=== PATIENT | male | born 1935 | race Asian ===

== ENCOUNTER 2020-06-12 10:51 | Inpatient (IN) | payer MEDICARE, MEDICAID ==
[~2020-06-12] VITALS: Ht 162.6 cm; Wt 61.0 kg
--- NOTE | 2020-06-12 11:00 | NUR ---
ED Nurse Note: Patient presents to ER due to frequent falls. Patient awake, alert, oriented x 4. Regular, unlabored breathing noted. Patient reports he uses walker and recently fell "a lot" Brusie/swelling over the left shoulder and skin abrasion on the right forearm noted. Patient recalled the event and answering questions appropriately. Patient reported he felt dizzy prior to fall. ERMD made aware. Reports no new medications. Patient has decreased oral intake due to loss of appetite. Reports no cough, fever, chills or SOB. Pacemaker to the left chest noted. AV paced rhythma identified. Bed in lowest position. Instructed patient to stay in bed and asking for assistance if he needs to get OOB. Call light within reach.
--- NOTE | 2020-06-12 11:40 | NUR ---
ED Nurse Note: SAMY-[phone]
--- NOTE | 2020-06-12 11:52 | NUR ---
ED Nurse Note: Transporter taken patient to CT scan.
[2020-06-12] MEDS ORDERED: AMIODARONE HCL400 M1 ORAL (11:54)
[2020-06-12] MEDS ORDERED: LOSARTAN POTASS50 MG ORAL (11:54)
[2020-06-12] MEDS ORDERED: ELIQUIS5 MG PO (11:54)
[2020-06-12] MEDS ORDERED: AMLODIPINE BESYL5 MG ORAL (11:54)
[2020-06-12] MEDS ORDERED: METOPROLOL TAR100 M1 ORAL (11:54)
[2020-06-12] MEDS ORDERED: ATORVASTATIN CA20 MG ORAL (11:55)
[2020-06-12] MEDS ORDERED: ASPIRIN81 MG ORAL (11:55)
[2020-06-12] MEDS ORDERED: PANTOPRAZOLE SO40 MG ORAL (11:55)
[2020-06-12 12:15] LABS: BASOPHILS % (AUTO) 1.2 % (0.0-2.0); EOSINOPHILS % (AUTO) 0.8 % (0.0-3.0); HEMOGLOBIN 12.4 G/DL (14.2-18.0); LYMPHOCYTES % (AUTO) 12.1 % (20.0-45.0); MEAN CORPUSCULAR VOLUME 91 FL (80-99); MONOCYTES % (AUTO) 16.1 % (1.0-10.0); NEUTROPHILS % (AUTO) 69.8 % (45.0-75.0); PLATELET COUNT 308 K/UL (150-450); RED BLOOD COUNT 3.97 M/UL (4.70-6.10); WHITE BLOOD COUNT 9.7 K/UL (4.8-10.8)
--- NOTE | 2020-06-12 12:15 | NUR ---
ED Nurse Note: Patient returned from CT scan. Placed patient on groundwater monitoring technician.
--- NOTE | 2020-06-12 12:29 | Diagnostic Imaging Report ---
Indications: Head trauma, pain Technique: Spiral acquisitions obtained through the brain. Angled axial and coronal 5 x 5 mm slices were reconstructed. Total dose length product 1018 mGycm. CTDI vol(s) 53 mGy. Dose reduction achieved using automated exposure control Comparison: None. Findings: There is age-related enlargement of the ventricles and extra axial CSF spaces. There is periventricular deep white matter low-attenuation, consistent with chronic microvascular ischemic changes. Otherwise normal mckay-white differentiation. No acute intracranial hemorrhage. No mass effect nor midline shift. The mastoids are clear. The calvarium is intact. Impression: Chronic and age-related changes Negative for acute intracranial bleed or mass effect. The CT scanner at [facility] is accredited by the [employer] and the scans are performed using protocols designed to limit radiation exposure to as low as reasonably achievable to attain images of sufficient resolution adequate for diagnostic evaluation.
[2020-06-12 12:30] LABS: CALCIUM 8.6 MG/DL (8.5-10.1); CREATININE 1.3 MG/DL (0.55-1.30); POTASSIUM 4.4 MMOL/L (3.5-5.1)
[2020-06-12 12:42] LABS: ALBUMIN 2.9 G/DL (3.4-5.0); ALBUMIN/GLOBULIN RATIO 0.9 (1.0-2.7)
[2020-06-12 13:26] VITALS: BP 147/58
--- NOTE | 2020-06-12 13:30 | NUR ---
ED Nurse Note: Patient able to wiggle left hand, cap refill < 3 sec and sensation remained intact.
--- NOTE | 2020-06-12 13:35 | NUR ---
ED Nurse Note: Report given to THANH Mast.
--- NOTE | 2020-06-12 15:00 | NUR ---
ED Nurse Note: Patient resting in bed. Sling in LUE.
--- NOTE | 2020-06-12 15:39 | NUR ---
ED Nurse Note: Report given to THANH López. RN held IV fluid. Denies any SOB or dyspnea at this time. Addendum: 06/12/20 at 2005 by MIKE Patient received approximately 700ml fluid.
[2020-06-12 16:08] VITALS: BP 150/70
--- NOTE | 2020-06-12 16:33 | NUR ---
NURSE NOTES: Patient admitted from ED, report received from Emani LAW. Transferred to bed. teletypesetter monitor placed. Belongings accounted for. Pacemaker on left upper chest palpated. Skin intact, with bruising on left shoulder noted. Sling on left arm, reminded patient to keep arm still. Breathing unlabored, with crackles noted on the right lower lobe. Patient denies coughing. A and O x 4. Oriented to room and call light. Side rails up, bed alarm on. IV line on right forearm intact, g20. HOB elevated. Patient's daughter requested covid test for patient, also reports new onset tremors, Dr Ramirez made aware. Bed locked in low position. Call light within reach. Will continue plan of care. Addendum: 06/12/20 at 2002 by Maribel Dumont RN NURSE NOTES: Dr Ramirez said he will be the one to put in admission orders. Addendum: 06/12/20 at 2006 by Maribel Dumont RN NURSE NOTES: Admitting VS: 97.9F, 65 MT, 20 RR, 154/55, 93% O2 sat.
--- NOTE | 2020-06-12 16:43 | NUR ---
ED Nurse Note: Patient transferred to tele unit. Addendum: 06/12/20 at 2006 by MIKE Patient remained awake, alert, oriented x 4. Patient has sling to left arm remained intact. RN checked with Dr. Bauman if he needs any exam for elevated LFTs and no further order received and ok to transfer patient to tele at this time. No facial grimacing or guarding noted.
[2020-06-12 17:32] LABS: APPEARANCE,URINE CLEAR; BILIRUBIN, URINE NEGATIVE (NEGATIVE); COLOR,URINE YELLOW; GLUCOSE, URINE (UA) NEGATIVE (NEGATIVE); KETONES,URINE NEGATIVE (NEGATIVE); LEUKOCYTE ESTERASE ,URINE 1+ (NEGATIVE); NITRITE,URINE NEGATIVE (NEGATIVE); PH,URINE 7 (4.5-8.0); PROTEIN,URINE NEGATIVE (NEGATIVE); UROBILINOGEN,URINE NORMAL MG/DL (0.0-1.0)
[2020-06-12] MEDS ORDERED: Milk of Magnesia 30ml Ud ORAL PRN (17:45)
--- NOTE | 2020-06-12 18:19 | Diagnostic Imaging Report ---
Indication: Cough Technique: One view of the chest Comparison: none Findings: There is some calcification in the right infrahilar region. Bilateral acuity indeterminate interstitial and airspace disease is noted, somewhat diffuse with a mid and lower lung predominance. The pleural spaces are grossly clear. The heart size is normal. There is an ununited fracture of the left clavicle, displaced by 2 bone widths. There is a left chest pacemaker Impression: Bilateral interstitial and airspace disease, acuity indeterminate. Correlate with clinical findings Left distal clavicular fracture, acuity indeterminate Evidence of old granulomatous disease
--- NOTE | 2020-06-12 18:21 | Diagnostic Imaging Report ---
Indication: Shoulder pain Technique: 3 views of the left shoulder Comparison: none Findings: There is a fracture of the distal clavicle, displaced inferiorly by 2 bone widths and overriding by about 2 cm. There is a lucency at the base of the acromion which could also represent a fracture. No humeral fracture demonstrated. No dislocations. Impression: Positive for distal clavicular fracture Questionable fracture of the base of the acromion as well.
--- NOTE | 2020-06-12 18:49 | Emergency Room Report ---
History of Present Illness General Chief Complaint: Upper Extremity Injury Source: Patient, EMS Present Illness HPI 85-year-old male presents the ED for syncopal episode. Brought in by EMS from home. Fell last night. Hit his head. Also complaining of bruising and pain to the left shoulder. Pain is an 8 out of 10, dull, nonradiating. States he has been feeling lightheaded recently. Denies chest pain or shortness of breath. Denies fevers or chills. No other aggravating relieving factors. Denies any other associated symptoms Allergies: Coded Allergies: No Known Allergies (Unverified , 06/12/20) COVID-19 Screening Contact w/high risk pt: No Experienced COVID-19 symptoms?: No COVID-19 Testing performed QUIRK SANDER: No Patient History Past Medical History: HTN Past Surgical History: pacemaker Pertinent Family History: none Social History: Denies: smoking, alcohol use, drug use Immunizations: UTD Reviewed Nursing Documentation: PMH: Agreed; PSxH: Agreed Nursing Documentation-PMH Past Medical History: No History, Except For Hx Cardiac Problems: Yes Hx Hypertension: Yes Hx Pacemaker: Yes Hx Gastrointestinal Problems: Yes Review of Systems All Other Systems: negative except mentioned in HPI Physical Exam Vital Signs Date Time Temp Pulse Resp B/P (MAP) Pulse Ox O2 Delivery O2 Flow Rate FiO2 06/12/20 10:39 98.8 60 18 180/70 (106) 96 Room Air Sp02 EP Interpretation: reviewed, normal General Appearance: no apparent distress, alert, GCS 15, non-toxic Head: normocephalic, atraumatic Eyes: bilateral eye normal inspection, bilateral eye PERRL ENT: hearing grossly normal, normal pharynx, no angioedema, normal voice Neck: full range of motion, supple/symm/no masses Respiratory: chest non-tender, lungs clear, normal breath sounds, speaking full sentences Cardiovascular #1: regular rate, rhythm, no edema Cardiovascular #2: 2+ carotid (R), 2+ carotid (L), 2+ radial (R), 2+ radial (L), 2+ dorsalis pedis (R), 2+ dorsalis pedis (L) Gastrointestinal: normal bowel sounds, non tender, soft, non-distended, no guarding, no rebound Rectal: deferred Genitourinary: normal inspection, no CVA tenderness Musculoskeletal: back normal, normal range of motion, gait/station normal, non- tender Neurologic: alert, motor strength/tone normal, oriented x3, sensory intact, responsive, speech normal Psychiatric: judgement/insight normal, memory normal, mood/affect normal, no suicidal/homicidal ideation Reflexes: 3+ bicep (R), 3+ bicep (L), 3+ tricep (R), 3+ tricep (L), 3+ knee (R), 3+ knee (L) Lymphatic: no adenopathy Procedures Splinting Splinting : Consent: Verbal Pre-Made Type: Sling Pre-Proc Neuro Vasc Exam: normal Post-Proc Neuro Vasc Exam: normal Patient Tolerated: Well Complications: None Medical Decision Making Diagnostic Impression: Primary Impression: Clavicle fracture Qualified Codes: S42.032A - Displaced fracture of lateral end of left clavicle, initial encounter for closed fracture Additional Impression: Syncope Qualified Codes: R55 - Syncope and collapse ER Course Hospital Course 85-year-old male presents with syncopal episode. With left shoulder pain and bruising from fall Differential diagnoses include: [place]/unstable angina, arrythmia, dehydration, CVA/TIA Clinical course Patient placed on stretcher. on desk monitor. After initial history and physical I ordered labs, EKG, chest x-ray, IVFs, CT Brain labs reviewed- no leukocytosis, hemoglobin/hematocrit ok, electrolytes okay, LFTS mildly elevated, BNP elevated troponins negative EKG- paced rhythm, no acute ischemic changes interpreted by me Chest x-ray- blateral interstitial disease CT brain- no acute process L shoulder xray shows distal clavicle fx placed in sling. given age and comorbidities patient requires admission Case discussed with Dr. Song and he agreed to accept the patient to his service for further care and support I. I feel this is a highly complex case requiring extensive working including EKG/Rhythm strip, Xray/CT/US, Blood/urine lab work, repeat exams while in ED, and administration of strong opiates/narcotics for pain control, admission to hospital or close patient follow up. Diagnosis - syncope, clavicle fx admitted to telemetry in serious condition Laboratory Tests Test 06/12/20 11:45 06/12/20 16:10 White Blood Count 9.7 K/UL (4.8-10.8) Red Blood Count 3.97 M/UL (4.70-6.10) L Hemoglobin 12.4 G/DL (14.2-18.0) L Hematocrit 36.0 % (42.0-52.0) L Mean Corpuscular Volume 91 FL (80-99) Mean Corpuscular Hemoglobin 31.2 PG (27.0-31.0) H Mean Corpuscular Hemoglobin Concent 34.3 G/DL (32.0-36.0) Red Cell Distribution Width 13.0 % (11.6-14.8) Platelet Count 308 K/UL (150-450) Mean Platelet Volume 5.8 FL (6.5-10.1) L Neutrophils (%) (Auto) 69.8 % (45.0-75.0) Lymphocytes (%) (Auto) 12.1 % (20.0-45.0) L Monocytes (%) (Auto) 16.1 % (1.0-10.0) H Eosinophils (%) (Auto) 0.8 % (0.0-3.0) Basophils (%) (Auto) 1.2 % (0.0-2.0) Sodium Level 132 MMOL/L (136-145) L Potassium Level 4.4 MMOL/L (3.5-5.1) Chloride Level 98 MMOL/L (98-107) Carbon Dioxide Level 22 MMOL/L (21-32) Anion Gap 12 mmol/L (5-15) Blood Urea Nitrogen 17 mg/dL (7-18) Creatinine 1.3 MG/DL (0.55-1.30) Estimat Glomerular Filtration Rate 52.7 mL/min (>60) Glucose Level 127 MG/DL (74-106) H Calcium Level 8.6 MG/DL (8.5-10.1) Total Bilirubin 1.0 MG/DL (0.2-1.0) Aspartate Amino Transf (AST/SGOT) 178 U/L (15-37) H Alanine Aminotransferase (ALT/SGPT) 286 U/L (12-78) H Alkaline Phosphatase 103 U/L (46-116) Troponin I 0.028 ng/mL (0.000-0.056) Pro-B-Type Natriuretic Peptide 2557 pg/mL (0-125) H Total Protein 6.2 G/DL (6.4-8.2) L Albumin 2.9 G/DL (3.4-5.0) L Globulin 3.3 g/dL Albumin/Globulin Ratio 0.9 (1.0-2.7) L Urine Color Yellow Urine Appearance Clear Urine pH 7 (4.5-8.0) Urine Specific [place] 1.005 (1.005-1.035) Urine Protein Negative (NEGATIVE) Urine Glucose (UA) Negative (NEGATIVE) Urine Ketones Negative (NEGATIVE) Urine Blood Negative (NEGATIVE) Urine Nitrite Negative (NEGATIVE) Urine Bilirubin Negative (NEGATIVE) Urine Urobilinogen Normal MG/DL (0.0-1.0) Urine Leukocyte Esterase 1+ (NEGATIVE) H Urine RBC 0 /HPF (0 - 0) Urine WBC 0-2 /HPF (0 - 0) Urine Squamous Epithelial Cells None /LPF (NONE/OCC) Urine Bacteria Occasional /HPF (NONE) EKG Diagnostic Results Rate: normal Rhythm: other - paced rhythm ST Segments: other ASA given to the pt in ED: No Rhythm Strip Diag. Results EP Interpretation: yes Rhythm: no ectopy Chest X-Ray Diagnostic Results Chest X-Ray Diagnostic Results : Chest X-Ray Ordered: Yes # of Views/Limited/Complete: 1 View Indication: Other EP Interpretation: Yes Interpretation: no consolidation, no pneumothorax, other - bilateral intersitital disease Impression: Other - interstitial disease Electronically Signed by: Electronically signed by Devaughn Parra MD Other X-Ray Diagnostic Results Other X-Ray Diagnostic Results : X-Ray ordered: Left shoulder # of Views/Limited Vs Complete: 3 View Indication: Pain EP Interpretation: Yes Interpretation: no dislocation, no soft tissue swelling, other - Distal clavicle fracture Impression: Other - Distal clavicle fracture Electronically Signed by: Electronically signed by Devaughn Parra MD CT/MRI/US Diagnostic Results CT/MRI/US Diagnostic Results : Imaging Test Ordered: CT head Impression Procedure: CT Head no Contrast Indications: Head trauma, pain Technique: Spiral acquisitions obtained through the brain. Angled axial and coronal 5 x 5 mm slices were reconstructed. Total dose length product 1018 mGycm. CTDI vol(s) 53 mGy. Dose reduction achieved using automated exposure control Comparison: None. Findings: There is age-related enlargement of the ventricles and extra axial CSF spaces. There is periventricular deep white matter low-attenuation, consistent with chronic microvascular ischemic changes. Otherwise normal mckay-white differentiation. No acute intracranial hemorrhage. No mass effect nor midline shift. The mastoids are clear. The calvarium is intact. Impression: Chronic and age-related changes Negative for acute intracranial bleed or mass effect. Last Vital Signs Date Time Temp Pulse Resp B/P (MAP) Pulse Ox O2 Delivery O2 Flow Rate FiO2 06/12/20 17:26 Room Air 06/12/20 16:08 60 16 150/70 97 06/12/20 10:39 98.8 Status: improved Disposition: ADMITTED INPATIENT Condition: Serious Referrals: NON PHYSICIAN (PCP) Devaughn Parra MD Jun 12, 2020 18:48
--- NOTE | 2020-06-12 19:45 | Consultation ---
DATE OF CONSULTATION: 06/12/2020 CARDIOLOGY CONSULTATION CONSULTING PHYSICIAN: Bryant Ramirez MD. REFERRING PHYSICIAN: Lorne Song MD. REASON FOR CONSULTATION: Syncope. HISTORY OF PRESENT ILLNESS: This is an 85-year-old Italian male. He lives at home with his . He apparently was walking, felt lightheaded and dizzy, went to the bathroom and fell forward on his left side. He sustained trauma to that area and the result was a fracture of his left clavicle. He notes 3 to 4 such episodes over the past few months although none of them were severe enough to leave him to fall. He does have a pacemaker that was implanted 3 years ago and checked by his composition worker less than 6 months ago and noted to be functioning appropriately. The patient has not had any change in his medical condition, but has had decrease in his dose of amiodarone from 400 to 200 mg daily. He takes anticoagulation namely Eliquis for irregular heartbeats, related stroke prevention. The patient's notes that he has been somewhat more withdrawn and lethargic over the past week, but has not had any fever, chills, nausea, vomiting, abdominal pain, cough, or shortness of breath. PAST MEDICAL HISTORY: Pacemaker, hypertension, osteoarthritis, paroxysmal atrial fibrillation, hyperlipidemia. ALLERGIES: None known. MEDICATIONS: Prior to admission include amlodipine 5 daily, amiodarone 200 daily, Apixaban 5 b.i.d., aspirin 81 daily, Lipitor 20 daily, losartan 50 daily, metoprolol 100 b.i.d., and pantoprazole 40 daily. SOCIAL HISTORY: Negative for smoking, alcohol, or substance abuse. FAMILY HISTORY: Noncontributory. REVIEW OF SYSTEMS: A 10-point review of systems performed with a global manager present. All systems negative other than noted above. PHYSICAL EXAMINATION: GENERAL: Alert, in no distress. VITAL SIGNS: Blood pressure 180/70 initially in the emergency room, now 147/58, heart rate 61, respiratory rate 20, afebrile, oxygen saturation 99% on room air. HEENT: Trauma to the left shoulder is noted with some ecchymoses. Normocephalic, atraumatic. Conjunctivae pink. Oropharynx clear. NECK: Supple. Jugular venous pressure normal. Left pacemaker pocket site clean and dry. LUNGS: Clear. CARDIAC: Regular rhythm and rate. Normal S1. Paradoxically split S2. No murmur. ABDOMEN: Soft, nontender. EXTREMITIES: No edema. EKG revealed AV pacing. LABORATORY DATA: White count 9.7 hemoglobin 12.4. Urinalysis is pending. Sodium 132, potassium 4.4, bicarb 22, BUN 17, creatinine 1.3, glucose 127. AST, ALT are elevated at 178/286, alkaline phosphatase 103. Troponin 0.028. Pro-natriuretic peptide 2557 and albumin 2.9. IMPRESSION: 1. Syncopal episode. Considerations would include orthostasis, less likely pacemaker malfunction and even less likely an acute cerebrovascular insult. The possibility of arrhythmia must be considered as well. 2. Mild hypovolemia and dehydration. 3. Transaminitis. 4. Chronic diastolic congestive heart failure. 5. Hypertensive cardiomyopathy. 6. [employer] permanent pacemaker. 7. Moderate protein-calorie malnutrition. 8. Mild hyponatremia. PLAN: 1. Saline hydration. 2. Cardiac monitoring. 3. Check orthostatics. 4. Hold Eliquis in view of possible need for orthopedic surgery. 5. Decrease dose of beta-jone for now. 6. Monitor volume status. 7. Check echocardiogram. 8. Pacemaker interrogation. 9. Abdominal biliary ultrasound. Bryant Ramirez M.D. DR: RICHI JOB#: [id number] CC:
--- NOTE | 2020-06-12 19:45 | NUR ---
NURSE HAND-OFF REPORT: Important Events on Shift:admission Patient Status: stable Diet: KAY Pending Orders: abd US, covid rapid, xray left clavicle Pending Results/Labs: Pending MD notification: Latest Vital Signs: Temperature 98.7 , Pulse 60 , B/P 150 /70 , Respiratory Rate 16 , O2 SAT 97 , Room Air, O2 Flow Rate . Vital Sign Comment: EKG Rhythm: AV-Paced Rhythm change?: MD Notified?: - MD Response: Latest [place] Fall Score: 70 Fall Risk: High Risk Safety Measures: Call light , Bed Alarm , Side Rails Side Rails x2, Bed position . Fall Precautions: Report given to Valencia LAW.
--- NOTE | 2020-06-12 19:46 | NUR ---
NURSE NOTES: Pt received from THANH López. Pacemaker on left upper chest palpated, AV pacing on cardiac monitoring at 60 bpm. Skin intact, with bruising on left shoulder noted. Sling on left arm, reminded patient to keep arm still. Breathing unlabored, A and O x 4. Bed locked in lowest position, side rails up x2, bed alarm on. IV line on right forearm intact, 20 gauge. HOB elevated. Patient's daughter requested covid test for patient, also reports new onset tremors, Dr Ramirez previously informed prior to shift. Call light within reach. Will continue plan of care.
[2020-06-12 20:00] VITALS: BP 136/50
--- NOTE | 2020-06-12 20:00 | NUR ---
NURSE NOTES: came by and visited. She stated patient has had no appetite for 3 weeks. Also reported new onset tremor, said she no longer wanted to have him covid swabbed. He thought the test was a blood test not a swab
[2020-06-12] MEDS: Metoprolol Tartrate 50mg tab ORAL SCH (21:00)
[2020-06-12 22:00] VITALS: BP 127/54
--- NOTE | 2020-06-12 22:00 | NUR ---
NURSE NOTES: Left voicemail in regards to administering BP med metoprolol 50 mg, awaiting response, held at this time. BP is 136/50 HR 60, AV paced
--- NOTE | 2020-06-12 22:45 | History and Physical Report ---
DATE OF ADMISSION: 06/12/2020 REASON FOR ADMISSION: syncope. HISTORY OF PRESENT ILLNESS: This is an 85-year-old patient who apparently has had frequent falls with syncope. The patient is alert, oriented, reports using a walker and has been following now with complaints of left shoulder pain and skin abrasion. The patient denies any seizure activity. She reports feeling lightheaded and dizzy prior to the fall. She denies any new medications. Denies any alcohol use. No cough, shortness of breath, or chest pain. The patient does have a pacemaker. The patient was seen and evaluated and admitted for diagnosis of syncope. PAST MEDICAL HISTORY: Notable for dysrhythmias, pacemaker, hypertension, possible atrial fibrillation, hypercholesterolemia, and reflux disease. MEDICATIONS: Reviewed. ALLERGIES: Reviewed. SOCIAL HISTORY: The patient is retired. Nonsmoker and nondrinker. REVIEW OF SYSTEMS: All 10 points reviewed and otherwise negative. PHYSICAL EXAMINATION: GENERAL: A well-developed female, currently comfortable. VITAL SIGNS: Reviewed. Blood pressure 150/70, pulse rate 60, respirations 16, saturation 97%, and temperature 98.8. HEENT: Negative. NECK: Supple. No adenopathy. LUNGS: Fairly clear and symmetric. CARDIAC: S1, S2 noted. Soft systolic murmur. Overall regular rate and rhythm. ABDOMEN: Overall soft and nontender. EXTREMITIES: No cyanosis or clubbing. No significant edema or bruising noted overall, which is somewhat tender to the touch. IMAGING: The patient's imaging reviewed. CT notable for chronic changes. X-rays of her shoulder shows left clavicle fracture. LABORATORY DATA: Notable for hemoglobin 12.4, otherwise fairly normal CBC. Chemistry notable for elevated liver enzymes. AST 178, ALT of 286. BNP 2557. IMPRESSION: Multiple falls, recurrent syncope, left clavicular fracture, dysrhythmias, pacemaker, chronic liver enzymes, possibly due to statin use, evidence of moderate protein-calorie malnutrition with reduced albumin. RECOMMENDATIONS: Physical therapy evaluation. Resume medications at home, statin. Resume antiarrhythmics. Cardiology evaluation, EKG, echo, IV hydration with caution. Follow up liver enzymes and consider liver ultrasound. Will obtain GI evaluation to assist and assess. Discharge plan to home once cleared by all with home health and likely outpatient physical therapy if the patient improves. Lorne Song M.D. DR: Nnamdi JOB#: [id number] CC: PAT
[2020-06-13] VITALS: BP 110/49
[2020-06-13 04:00] VITALS: BP 118/55
[2020-06-13 06:37] LABS: BASOPHILS % (AUTO) 1.5 % (0.0-2.0); EOSINOPHILS % (AUTO) 1.4 % (0.0-3.0); HEMATOCRIT 29.7 % (42.0-52.0); HEMOGLOBIN 10.3 G/DL (14.2-18.0); MEAN CORPUSCULAR VOLUME 91 FL (80-99); MONOCYTES % (AUTO) 16.8 % (1.0-10.0); NEUTROPHILS % (AUTO) 68.4 % (45.0-75.0); PLATELET COUNT 258 K/UL (150-450); RED BLOOD COUNT 3.27 M/UL (4.70-6.10); WHITE BLOOD COUNT 11.5 K/UL (4.8-10.8)
--- NOTE | 2020-06-13 07:38 | General Progress Note ---
Subjective Allergies: Coded Allergies: No Known Allergies (Unverified , 06/12/20) Subjective overnight events noted appreciate cards and ortho Objective Last 24 Hour Vital Signs Date Time Temp Pulse Resp B/P (MAP) Pulse Ox O2 Delivery O2 Flow Rate FiO2 06/13/20 04:00 60 06/13/20 04:00 97.6 60 19 118/55 (76) 95 06/13/20 00:00 97.7 60 19 110/49 (69) 94 06/13/20 00:00 60 06/12/20 23:22 60 60 60 06/12/20 22:00 127/54 (78) 06/12/20 21:00 60 136/50 06/12/20 20:00 98.1 60 20 136/50 (78) 95 06/12/20 20:00 60 06/12/20 17:26 Room Air 06/12/20 16:08 60 16 150/70 97 Room Air 06/12/20 13:26 61 20 147/58 99 Room Air 06/12/20 10:39 98.8 60 18 180/70 (106) 96 Room Air Intake and Output 06/12/20 06/13/20 19:00 07:00 Intake Total 700 ml Output Total 500 ml 0 ml Balance 200 ml 0 ml Intake IV Total 700 ml Output Urine Total 500 ml 0 ml Laboratory Tests 06/12/20 11:45: White Blood Count 9.7, Red Blood Count 3.97L, Hemoglobin 12.4L, Hematocrit 36.0L , Mean Corpuscular Volume 91, Mean Corpuscular Hemoglobin 31.2H, Mean Corpuscular Hemoglobin Concent 34.3, Red Cell Distribution Width 13.0, Platelet Count 308, Mean Platelet Volume 5.8L, Neutrophils (%) (Auto) 69.8, Lymphocytes (%) (Auto) 12.1L, Monocytes (%) (Auto) 16.1H, Eosinophils (%) (Auto) 0.8, Basophils (%) (Auto) 1.2, Sodium Level 132L, Potassium Level 4.4, Chloride Level 98, Carbon Dioxide Level 22, Anion Gap 12, Blood Urea Nitrogen 17, Creatinine 1.3, Estimat Glomerular Filtration Rate 52.7, Glucose Level 127H, Calcium Level 8.6, Total Bilirubin 1.0, Aspartate Amino Transf (AST/SGOT) 178H, Alanine Aminotransferase (ALT/SGPT) 286H, Alkaline Phosphatase 103, Troponin I 0.028, Pro-B-Type Natriuretic Peptide 2557H, Total Protein 6.2L, Albumin 2.9L, Globulin 3.3, Albumin/Globulin Ratio 0.9L 06/12/20 16:10: Urine Color Yellow, Urine Appearance Clear, Urine pH 7, Urine Specific [place] 1.005, Urine Protein Negative, Urine Glucose (UA) Negative, Urine Ketones Negative, Urine Blood Negative, Urine Nitrite Negative, Urine Bilirubin Negative, Urine Urobilinogen Normal, Urine Leukocyte Esterase 1+H, Urine RBC 0, Urine WBC 0-2, Urine Squamous Epithelial Cells None, Urine Bacteria Occasional 06/13/20 05:25: White Blood Count 11.5H, Red Blood Count 3.27L, Hemoglobin 10.3L, Hematocrit 29.7L, Mean Corpuscular Volume 91, Mean Corpuscular Hemoglobin 31.6H, Mean Corpuscular Hemoglobin Concent 34.8, Red Cell Distribution Width 13.0, Platelet Count 258, Mean Platelet Volume 5.6L, Neutrophils (%) (Auto) 68.4, Lymphocytes (%) (Auto) 12.0L, Monocytes (%) (Auto) 16.8H, Eosinophils (%) (Auto) 1.4, Basophils (%) (Auto) 1.5, Sodium Level [Pending], Potassium Level [Pending], Chloride Level [Pending], Carbon Dioxide Level [Pending], Blood Urea Nitrogen [Pending], Creatinine [Pending], Estimat Glomerular Filtration Rate [Pending], Glucose Level [Pending], Calcium Level [Pending], Total Bilirubin [Pending], Aspartate Amino Transf (AST/SGOT) [Pending], Alanine Aminotransferase (ALT/SGPT) [Pending], Alkaline Phosphatase [Pending], Troponin I [Pending], Total Protein [Pending], Albumin [Pending], Globulin [Pending], Direct Bilirubin [Pending], Vitamin B12 Level [Pending], Thyroid Stimulating Hormone (TSH) [Pending], Hepati tis B Surface Antigen [Pending], Hepatitis B Surface Antibody, Quant [Pending], Hepatitis C Antibody [Pending] Height (Feet): 5 Height (Inches): 4.00 Weight (Pounds): 135 Objective GENERAL: A well-developed female, currently comfortable. NAD HEENT: Negative. NECK: Supple. No adenopathy. LUNGS: Fairly clear and symmetric. CARDIAC: S1, S2 noted. Soft systolic murmur. Overall regular rate and rhythm. ABDOMEN: Overall soft and nontender. EXTREMITIES: No cyanosis or clubbing. No significant edema or bruising noted overall, left shoulder with pain Assessment/Plan Assessment/Plan: IMPRESSION: Multiple falls, recurrent syncope, left clavicular fracture, dysrhythmias, pacemaker, chronic liver enzymes, possibly due to statin use, evidence of moderate protein-calorie malnutrition with reduced albumin. PLAN care noted ortho and cards hold statin monitor liver enzymes; pending this am PT eval fall precautions impression, plan, and exam edited and reviewed in detail care discussed with Lorne Lowe MD Jun 13, 2020 07:38
--- NOTE | 2020-06-13 07:41 | NUR ---
NURSE NOTES: Received report from THANH [place]. Pt is resting in bed, stable. pt is getting diagnostic test currently. Pt RFA 20g, asymptomatic and intact. L arm in sling. Bed low and locked, call light in reach, bed alarm on.
[2020-06-13 08:00] VITALS: BP 145/50
[2020-06-13 08:32] LABS: ALANINE AMINOTRANSFERASE 251 U/L (12-78); ALBUMIN 2.3 G/DL (3.4-5.0); ALBUMIN/GLOBULIN RATIO 0.8 (1.0-2.7); ALKALINE PHOSPHATASE 88 U/L (46-116); ANION GAP 8 mmol/L (5-15); ASPARTATE AMINO TRANSFERASE 139 U/L (15-37); BILIRUBIN,DIRECT 0.3 MG/DL (0.0-0.3); BILIRUBIN,TOTAL 0.7 MG/DL (0.2-1.0); BLOOD UREA NITROGEN 17 mg/dL (7-18); CALCIUM 8.1 MG/DL (8.5-10.1); CARBON DIOXIDE 24 MMOL/L (21-32); CHLORIDE 104 MMOL/L (98-107); CREATININE 1.2 MG/DL (0.55-1.30); POTASSIUM 4.3 MMOL/L (3.5-5.1); SODIUM 136 MMOL/L (136-145)
--- NOTE | 2020-06-13 08:35 | NUR ---
NURSE HAND-OFF REPORT: Important Events on Shift: - Patient Status: NPO at this time due to abdominal US this morning Diet: KAY soft easy chew after US Pending Orders: Pending Results/Labs: abdominal US to be done this morning Pending MD notification:- Latest Vital Signs: Temperature 98.6 , Pulse 68 , B/P 138 /73 , Respiratory Rate 24 , O2 SAT 98 , EKG Rhythm: AV paced at 60 bpm Rhythm change?: N Latest Quezada Fall Score: 70 Fall Risk: High Risk Safety Measures: Call light Within Reach, Bed Alarm Zone 2, Side Rails Side Rails x2, Bed position Low and Locked. Fall Precautions: Yellow Socks Door Sign Patient Fall Education Report given to THANH Franco Addendum: 06/13/20 at 0851 by Angela Hdez RN xray of clavicle
[2020-06-13] MEDS: Amiodarone 200mg tab ORAL SCH (08:37)
[2020-06-13] MEDS: Aspirin EC 81mg tab ORAL SCH (08:38)
[2020-06-13] MEDS: Metoprolol Tartrate 50mg tab ORAL SCH ×2 (08:38→21:18)
[2020-06-13] MEDS: Losartan 50mg tab ORAL SCH (08:39)
--- NOTE | 2020-06-13 09:44 | Diagnostic Imaging Report ---
Indication: Shoulder pain Technique: 2 views of the left clavicle Comparison: Shoulder radiograph 06/12/2020 Findings: Again demonstrated is a fracture of the distal clavicle, displaced by 1-2 bone widths and overriding by about 2 cm. A lucency through the lateral aspect of the base of the acromion is also noted. A pacemaker is again noted Impression: Acuity indeterminate distal clavicular fracture Cannot rule out nondisplaced incomplete fracture of the acromial base
--- NOTE | 2020-06-13 10:03 | Diagnostic Imaging Report ---
Indication: Abnormal liver function tests Technique: Boyd-scale and duplex images of the upper abdomen were obtained Comparison: none Findings: Gallbladder is nondistended. No definite stones, wall thickening, nor pericholecystic fluid. Sonographic Caldera's sign is negative. Common bile duct measures 3 mm in diameter. No intrahepatic biliary ductal dilatation. Liver demonstrates normal echogenicity, no focal abnormality. Portal vein and hepatic veins are not well visualized due to excess patient respiration. Pancreas is unremarkable. Spleen is poorly visualized, grossly unremarkable. Left kidney measures 8 cm in length. Right kidney measures 9.2 cm length. Both kidneys demonstrate normal echogenicity. There is no hydronephrosis. No focal abnormality . Non-aneurysmal abdominal aorta . Impression: Somewhat limited exam, with suboptimal visualization of the spleen and portal vein. Negative otherwise
--- NOTE | 2020-06-13 11:18 | NUR ---
P.T Note: P.T evaluation completed and tx initiated. Please refer to P.T evaluation for current functional status. Pt is alert, O x 4 , pleasant and cooperative. Pt reports c/o L shoulder pain aggravated by movement against gravity 5/10. Pt also reported c/o dizziness upon initial sitting however subsided over time. Pt currently requires MIN A x 1 for bed mobility and transfer activities. Pt ambulated w/o an AD. Gait was unsteady with episodes of LOB when pt gets distracted and making sudden head turns or making quick transitional movement. Pt tolerated P.T eval/tx well. Vitals were stable all throughout session. Pt will benefit from skilled P.T. services to improve strength, balance and endurance to increase mobility independence and safety. Pt may benefit from FWW and home P.T. when ready to D/C from this facility.
[2020-06-13 12:00] VITALS: BP 134/48
--- NOTE | 2020-06-13 13:29 | NUR ---
CASE MANAGEMENT:REVIEW 85 YR OLD MALE BIBA FROM HOME CC: GROUND LEVEL FALL SUSTAINING INJURY TO SHOULDER SI: SYNCOPE W/COLLAPSE. CLAVICULAR FRACTURE 98.7 60 18 180/70 96% ON RA AST/ALT+178/286 BNP+2557 IS: 1L NS BOLUS XRAY LT SHOULDER CT HEAD CHEST XRAY : TO TELEMETRY
--- NOTE | 2020-06-13 15:18 | Cardiology Report ---
APPROVED REPORT EXAM: Two-dimensional and M-mode echocardiogram with Doppler and color Doppler. INDICATION Arrhythmia M-Mode DIMENSIONS IVSd1.3 (0.7-1.1cm)Left Atrium (MM)3.6 (1.6-4.0cm) LVDd4.0 (3.5-5.6cm)Aortic Root3.2 (2.0-3.7cm) PWd1.2 (0.7-1.1cm)Aortic Cusp Exc.1.7 (1.5-2.0cm) IVSs2.0 cmEPSS0.3 (>1.0cm) LVDs2.5 (2.5-4.0cm) PWs1.5 cm <Conclusion> Normal left ventricular chamber size, systolic function and wall motion. Left ventricular ejection fraction estimated to be 60-65 %. Mild to moderate left ventricular hypertrophy although on visual evaluation the proximal anterior septum appears asymetrically hypertrophied No evidence of pericardial effusion. All other cardiac chamber sizes are within normal limits. Moderate calcification of the non-cusp leaflet of aortic valve with adequate cusp excursion. Thickened mitral valve leaflets with normal excursion. Mitral annulus and aortic root calcification. Pulmonic valve not well visualized. Normal tricuspid valve structure. IVC at normal size and collapsing with respiration. A color flow and spectral Doppler study was performed and revealed: No aortic regurgitation.Aortic vavel mean gradient 6 and peak gradient of 14 mmhg Mild mitral regurgitation. Mitral diastolic velocities suggest reduced left ventricular relaxation c/w mild diastolic dysfunction (Grade I). Trace to mild tricuspid regurgitation. Tricuspid systolic velocities suggests peak right ventricular systolic pressure of 26 mmHg.
[2020-06-13] MEDS ORDERED: AMIODARONE HCL200 MG ORAL (15:59)
[2020-06-13] MEDS ORDERED: LOSARTAN POTASS25 MG ORAL (15:59)
[2020-06-13 16:00] VITALS: BP 126/51
--- NOTE | 2020-06-13 16:09 | NUR ---
NURSE NOTES: Pt initially asked for covid swab per [place] [employer] but then Pt realized it was via nasal swab and refused. Today, I tried to offer again, pt refused.
--- NOTE | 2020-06-13 17:45 | Cardiology Report ---
APPROVED REPORT EKG Measurement Heart [id number] <Conclusion> Atrial-sensed ventricular-paced rhythm with prolonged AV conduction Abnormal ECG
--- NOTE | 2020-06-13 19:35 | NUR ---
NURSE NOTES: Received pt and report from THANH Franco. Observed pt awake and dangling feet at bedside with family member at bedside. Pt is A/Ox4. 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 IV site intact, asymptomatic, and patent. Bed is in the lowest position, locked, and alarmed. Fall precaution noted. Call light and bedside table is within reach. No signs/symptoms of acute distress noted at this time. Will continue plan of care.
--- NOTE | 2020-06-13 19:37 | NUR ---
NURSE HAND-OFF REPORT: Important Events on Shift: refuse covid swab, Patient Status: fc, stable Diet: no added salt Pending Orders: Pending Results/Labs: Pending MD notification: Latest Vital Signs: Temperature 97.4 , Pulse 60 , B/P 126 /51 , Respiratory Rate 20 , O2 SAT 95 , Room Air, O2 Flow Rate . Vital Sign Comment: EKG Rhythm: AV-Paced Rhythm change?: N MD Notified?: - MD Response: Latest Quezada Fall Score: 70 Fall Risk: High Risk Safety Measures: Call light Within Reach, Bed Alarm Zone 2, Side Rails Side Rails x2, Bed position Low and Locked. Fall Precautions: Yellow Socks Yellow Gown Door Sign Patient Fall Education Report given to THANH Toribio.
[2020-06-13 20:00] VITALS: BP 133/51
--- NOTE | 2020-06-13 21:34 | NUR ---
NURSE NOTES: Per pt and family member, pt would like to see MD early in the morning and would like to be discharged by tomorrow. Dr. Song made aware and per Dr. Song, Ortho MD will see pt early tomorrow morning.
--- NOTE | 2020-06-13 23:50 | Cardiology Progress Note ---
Subjective DATE OF SERVICE: Jun 13, 2020 Pacemaker interrogated today: no events and battery life 2 years. No orthostatic sx's BP controlled in low-normal range on half his usual doses of BP meds. Objective Last 24 Hour Vital Signs Date Time Temp Pulse Resp B/P (MAP) Pulse Ox O2 Delivery O2 Flow Rate FiO2 06/13/20 21:18 61 133/51 06/13/20 21:00 Room Air 06/13/20 20:00 98.8 60 19 133/51 (78) 94 06/13/20 20:00 60 06/13/20 16:00 97.4 60 20 126/51 (76) 95 06/13/20 16:00 60 06/13/20 12:00 60 06/13/20 12:00 97.1 59 20 134/48 (76) 96 06/13/20 09:00 Room Air 06/13/20 09:00 67 65 67 06/13/20 08:39 145/50 06/13/20 08:38 60 145/50 06/13/20 08:38 60 145/50 06/13/20 08:00 97.7 60 20 145/50 (81) 96 06/13/20 08:00 60 06/13/20 04:00 60 06/13/20 04:00 97.6 60 19 118/55 (76) 95 06/13/20 00:00 97.7 60 19 110/49 (69) 94 06/13/20 00:00 60 ROS: unchanged from 06/12/20 HEENT: normal ENT inspection RHYTHM: other - AV paced LUNGS: lungs clear bilaterally CARDIAC: normal rate, regular rhythm, normal S1 and S2 ABDOMEN: normal bowel sounds, non tender, soft, no organomegaly, no mass EXTREMITIES: non-tender, No edema, other - Skin: ecchymoses left shoulder Laboratory Tests Test 06/13/20 05:25 White Blood Count 11.5 K/UL (4.8-10.8) H Red Blood Count 3.27 M/UL (4.70-6.10) L Hemoglobin 10.3 G/DL (14.2-18.0) L Hematocrit 29.7 % (42.0-52.0) L Mean Corpuscular Volume 91 FL (80-99) Mean Corpuscular Hemoglobin 31.6 PG (27.0-31.0) H Mean Corpuscular Hemoglobin Concent 34.8 G/DL (32.0-36.0) Red Cell Distribution Width 13.0 % (11.6-14.8) Platelet Count 258 K/UL (150-450) Mean Platelet Volume 5.6 FL (6.5-10.1) L Neutrophils (%) (Auto) 68.4 % (45.0-75.0) Lymphocytes (%) (Auto) 12.0 % (20.0-45.0) L Monocytes (%) (Auto) 16.8 % (1.0-10.0) H Eosinophils (%) (Auto) 1.4 % (0.0-3.0) Basophils (%) (Auto) 1.5 % (0.0-2.0) Sodium Level 136 MMOL/L (136-145) Potassium Level 4.3 MMOL/L (3.5-5.1) Chloride Level 104 MMOL/L (98-107) Carbon Dioxide Level 24 MMOL/L (21-32) Anion Gap 8 mmol/L (5-15) Blood Urea Nitrogen 17 mg/dL (7-18) Creatinine 1.2 MG/DL (0.55-1.30) Estimat Glomerular Filtration Rate 57.8 mL/min (>60) Glucose Level 118 MG/DL (74-106) H Calcium Level 8.1 MG/DL (8.5-10.1) L Total Bilirubin 0.7 MG/DL (0.2-1.0) Direct Bilirubin 0.3 MG/DL (0.0-0.3) Aspartate Amino Transf (AST/SGOT) 139 U/L (15-37) H Alanine Aminotransferase (ALT/SGPT) 251 U/L (12-78) H Alkaline Phosphatase 88 U/L (46-116) Troponin I 0.046 ng/mL (0.000-0.056) Total Protein 5.1 G/DL (6.4-8.2) L Albumin 2.3 G/DL (3.4-5.0) L Globulin 2.8 g/dL Albumin/Globulin Ratio 0.8 (1.0-2.7) L Vitamin B12 Level 1738 PG/ML (193-986) H Thyroid Stimulating Hormone (TSH) 0.676 uiU/mL (0.358-3.740) Hepatitis B Surface Antigen Pending Hepatitis B Surface Antibody, Quant Pending Hepatitis C Antibody Pending Assessment/Plan Assessment/Plan Left clavicle fx Probable orthostatic syncope Hypertension/HHD Pacemaker with normal function Hypovolemia/dehydration/hyponatremia improved DC IVF Ortho f/u Would maintain lower dosing of BP meds upon discharge Continue maintenance dose of amiodarone 200qd Bryant Ramirez MD Jun 13, 2020 23:49
[2020-06-14] VITALS: BP 139/52
[2020-06-14 04:00] VITALS: BP 126/52
--- NOTE | 2020-06-14 07:52 | NUR ---
NURSE HAND-OFF REPORT: Important Events on Shift: Pt would like to be discharge today after being seen by MD. Dr. Song made aware. Patient Status: Stable Diet: No added salt Pending Orders: N Pending Results/Labs: N Latest Vital Signs: Temperature 97.3 , Pulse 60 , B/P 126 /52 , Respiratory Rate 20 , O2 SAT 94 , Room Air, O2 Flow Rate . EKG Rhythm: AV-Paced Rhythm change?: N Latest Quezada Fall Score: 70 Fall Risk: High Risk Safety Measures: Call light Within Reach, Bed Alarm Zone 2, Side Rails Side Rails x2, Bed position Low and Locked. Fall Precautions: Yellow Socks Yellow Gown Door Sign Patient Fall Education Report given to THANH Coker.
[2020-06-14 08:00] VITALS: BP 138/61
[2020-06-14 08:03] VITALS: BP 127/51
[2020-06-14 08:06] VITALS: BP 122/53
--- NOTE | 2020-06-14 08:18 | NUR ---
NURSE NOTES: Received report from THANH Toribio. Pt A/O x3, no s/s of acute respiratory and cardiac distress. On room air. SL on right FA 20 G, asymptomatic, patent and intact. Bed in low position, side rails up x 3 and call light within reach. Will continue to monitor.
[2020-06-14] MEDS: Amiodarone 200mg tab ORAL SCH (09:04)
[2020-06-14] MEDS: Aspirin EC 81mg tab ORAL SCH (09:04)
[2020-06-14] MEDS: Losartan 50mg tab ORAL SCH (09:04)
[2020-06-14] MEDS: Metoprolol Tartrate 50mg tab ORAL SCH (09:05)
[2020-06-14 12:00] VITALS: BP 141/48
[2020-06-14] MEDS ORDERED: MEGESTROL400 MG/11 PO (12:03)
[2020-06-14] MEDS ORDERED: PACERONE200 MG ORAL (12:03)
[2020-06-14] MEDS ORDERED: METOPROLOL TART50 MG ORAL (12:03)
[2020-06-14] MEDS ORDERED: REMERON15 M1 ORAL (12:03)
--- NOTE | 2020-06-14 12:06 | General Progress Note ---
Subjective Allergies: Coded Allergies: No Known Allergies (Unverified , 06/12/20) Subjective overnight events noted appreciate cards and ortho cleared for dc d/w daughter patient wants to go home Objective Last 24 Hour Vital Signs Date Time Temp Pulse Resp B/P (MAP) Pulse Ox O2 Delivery O2 Flow Rate FiO2 06/14/20 09:05 63 138/61 06/14/20 09:04 122/53 06/14/20 09:04 68 122/53 06/14/20 09:00 63 65 68 06/14/20 09:00 Room Air 06/14/20 08:06 68 122/53 (76) 06/14/20 08:03 65 127/51 (76) 06/14/20 08:00 63 06/14/20 08:00 97.9 63 20 138/61 (86) 96 06/14/20 04:00 60 06/14/20 04:00 97.3 60 20 126/52 (76) 94 06/14/20 00:00 97.3 60 20 139/52 (81) 95 06/14/20 00:00 60 06/13/20 21:18 61 133/51 06/13/20 21:00 Room Air 06/13/20 21:00 60 60 60 06/13/20 20:00 98.8 60 19 133/51 (78) 94 06/13/20 20:00 60 06/13/20 16:00 97.4 60 20 126/51 (76) 95 06/13/20 16:00 60 Intake and Output 06/13/20 06/14/20 19:00 07:00 Intake Total 354 ml 200 ml Output Total 800 ml Balance -446 ml 200 ml Intake Oral 354 ml 200 ml Output Urine Total 800 ml # Voids 2 2 Height (Feet): 5 Height (Inches): 4.00 Weight (Pounds): 135 Objective GENERAL: A well-developed female, currently comfortable. NAD HEENT: Negative. NECK: Supple. No adenopathy. LUNGS: Fairly clear and symmetric. CARDIAC: S1, S2 noted. Soft systolic murmur. Overall regular rate and rhythm. ABDOMEN: Overall soft and nontender. EXTREMITIES: No cyanosis or clubbing. No significant edema or bruising noted overall, left shoulder with pain Assessment/Plan Assessment/Plan: IMPRESSION: Multiple falls, recurrent syncope, left clavicular fracture, dysrhythmias, pacemaker, chronic liver enzymes, possibly due to statin use, evidence of moderate protein-calorie malnutrition with reduced albumin. PLAN care noted ortho and cards noted hold statin with elevated liver enzymes home health on dc close follow up of labs fall precautions reduced amio dose reduce beta jone impression, plan, and exam edited and reviewed in detail care discussed with Lorne Lowe MD Jun 14, 2020 12:05
--- NOTE | 2020-06-14 16:44 | NUR ---
*-*DISCHARGE PLANNED*-* PATIENT HAS BEEN ACCEPTED WITH: [facility] P: [phone] S/W MARÍA, WHO STATED THEY WILL SERVICE PATIENT UPON DISCHARGE.
--- NOTE | 2020-06-14 16:44 | Consultation ---
DATE OF CONSULTATION: 06/13/2020 HISTORY OF PRESENT ILLNESS: The patient is a pleasant 85-year-old gentleman who had a fall due to syncope. He was diagnosed with left clavicle fracture. Therefore, orthopedic consult has been obtained for further care and recommendation. PAST MEDICAL HISTORY: Hypertension, , hypercholesteremia, GERD. PAST SURGICAL HISTORY: Pacemaker placement. MEDICATIONS: Per intake chart. ALLERGIES: Reviewed. SOCIAL HISTORY: The patient is retired. He is a nonsmoker and nondrinker. FAMILY HISTORY: Noncontributory. PHYSICAL EXAMINATION: GENERAL: The patient is a well-developed man, resting comfortably at this time on bed. VITAL SIGNS: Afebrile. Stable vital signs. EXTREMITIES: Left shoulder examination shows obvious deformity of the left clavicle area. SKIN: Intact. Moderate ecchymosis and swelling. IMAGING STUDIES: CT scan of the head is available. Clavicle films have not been downloaded as of yet. ASSESSMENT: Left clavicle fracture. DISCUSSION: At this point, I will see if today the clavicle imaging studies are available for my review, at which point further recommendations can be made, and if they were not done, then we will repeat the imaging studies. Edil Mclaughlin M.D. DR: Barry JOB#: [id number] CC:
--- NOTE | 2020-06-14 16:57 | NUR ---
NURSE NOTES: Pt discharged home. Gave medications prescribed by Dr. Song. No s/s of acute distress. Telemetry box removed. SL removed from right FA. Daughter Amaya picked up pt. Assisted pt out to car with wheelchair.
--- NOTE | 2020-06-15 04:25 | Cardiology Progress Note ---
Subjective DATE OF SERVICE: Jun 14, 2020 Pacemaker interrogated yesterday: no events and battery life 2 years. No orthostatic sx's BP controlled in mostly normal range on half his usual doses of BP meds. Objective Last 24 Hour Vital Signs Date Time Temp Pulse Resp B/P (MAP) Pulse Ox O2 Delivery O2 Flow Rate FiO2 06/14/20 12:00 97.9 60 20 141/48 (79) 94 06/14/20 12:00 60 06/14/20 09:05 63 138/61 06/14/20 09:04 122/53 06/14/20 09:04 68 122/53 06/14/20 09:00 63 65 68 06/14/20 09:00 Room Air 06/14/20 08:06 68 122/53 (76) 06/14/20 08:03 65 127/51 (76) 06/14/20 08:00 63 06/14/20 08:00 97.9 63 20 138/61 (86) 96 ROS: unchanged from 06/12/20 HEENT: normal ENT inspection RHYTHM: other - AV paced LUNGS: lungs clear bilaterally CARDIAC: normal rate, regular rhythm, normal S1 and S2 ABDOMEN: normal bowel sounds, non tender, soft, no organomegaly, no mass EXTREMITIES: non-tender, No edema, other - Skin: ecchymoses left shoulder Assessment/Plan Assessment/Plan Left clavicle fx Probable orthostatic syncope Hypertension/HHD Pacemaker with normal function Hypovolemia/dehydration/hyponatremia improved Outpatient ortho follow up. Would maintain current, lower dosing of BP meds upon discharge Continue maintenance dose of amiodarone 200qd Bryant Ramirez MD Jun 15, 2020 04:25
--- NOTE | 2020-06-15 09:55 | Discharge Summary ---
Discharge Summary Discharge Summary _ DATE OF ADMISSION: 06/12/2020 DATE OF DISCHARGE: 06/14/2020 DISCHARGED BY: Dr. Song REASON FOR ADMISSION: 84 years old male with past medical history of hypertension, pacemaker, GERD, presented to emergency department from home , after syncopal episode last night. Patient reported hitting his head. Patient also reported bruising and pain in the left shoulder. Pain reported as nonradiating , dull quality, 8 out of 10 on a scale 1-10. Patient reported feeling lightheaded recently . No chest pain or shortness of breath. No fever or chills. Upon evaluation blood pressure was elevated 180/70 , otherwise vital signs were stable. Laboratory work-up revealed no leukocytosis, hemoglobin 12.4 ,hematocrit 36 ,platelet count 308. Sodium 132,chloride 98. Stable other electrolytes. BUN 17, creatinine 1.3. Glucose 127. Troponin 0.028, pro BNP 2557. EKG revealed paced rhythm. Albumin 2.9. Urinalysis revealed +1 leukocyte esterase, but no pyuria and occasional bacteria. Chest x-ray demonstrated bilateral interstitial airspace disease. Left distal clavicular fracture acuity indeterminant. Evidence of old granulomatous disease. CT of the head revealed chronic and age-related changes. No evidence of acute intracranial bleeding or mass-effect. X-ray of the left shoulder was positive for distal clavicular fracture. Questionable fracture on the base of the acromion as well. In emergency department patient received Tylenol and admitted for further management. CONSULTANTS: pool table mechanic orthopedic surgery [facility] COURSE: Patient admitted to telemetry floor. Patient was hydrated. Serial troponin were negative, EKG revealed paced rhythm, no acute changes. Patient was ruled out for acute myocardial infarction. Echocardiogram demonstrated preserved ejection fraction of 60 to 65%. No evidence of wall motion abnormality. Right ventricular systolic pressure of 26. Antiplatelet therapy with aspirin and beta-blockade continued. Blood pressure was managed with beta-jone , calcium channel jone and angiotensin receptor jone. Pacemaker interrogated and showed normal functioning. Battery life of 2 years. Orthostatic vital signs revealed no orthostatic changes. However according to pool table mechanic recurrent syncope was most probably orthostatic syncope. Antihypertensive regimen was optimized and dose of beta-jone down-titrated prior to discharge. Blood pressure remained stable with current regimen. Amiodarone continued. Telemetry showed AV paced rhythm, no changes. Fall precaution maintained. Patient was working with physical therapist. Physical therapist recommended to skilled physical therapy services upon discharge. X-ray of the left clavicle was done as well and showed acuity indeterminant left distal clavicular fracture. Cannot rule out nondisplaced incomplete fracture of the acromial base. Orthopedic surgeon seen and evaluated patient . Patient to follow-up with orthopedic surgeon as outpatient as advised Pain management was addressed, and pain was controlled. Hyponatremia was due to dehydration and resolved prior to discharge sodium 136. Patient was noted to have elevated liver enzymes . Abdominal ultrasound was essentially negative Hepatitis panel was negative. Elevated liver enzymes were probably due to statin therapy ; statin was stopped , which discussed with the patient's daughter. GI prophylaxis provided. Supportive care provided. Patient clinically stabilized and was ready for discharge. Home health services were arranged . FINAL DIAGNOSES: Multiply falls Left clavicle fracture Recurrent syncope, probable orthostatic syncope Hypertensive heart disease Pacemaker Dysrhythmia Chronic elevation of liver enzyme , possibly due to statin use Dehydration Hyponatremia due to dehydration -resolved Moderate protein calorie malnutrition DISCHARGE MEDICATIONS: See Medication Reconciliation list. DISCHARGE INSTRUCTIONS: Patient was discharged home with home health services. Follow-up with the primary care provider in 1 week. Follow-up with the orthopedic surgeon as advised by surgeon I have been assigned to dictate discharge summary for this account. I was not involved in the patient's management. Leora Polanco NP Jun 15, 2020 09:55
== END 2020-06-14 16:50 | disposition home or self-care (01) | DRG 563 ==
LOC: EDBD 10:51 → EMR 13:00 → 2E 13:09 → EDBEDREQ 14:20
DX: S42.032A Displaced fracture of lateral end of left clavicle, initial encounter for closed fracture (principal); E44.0 Moderate protein-calorie malnutrition; E87.1 Hypo-osmolality and hyponatremia; I50.32 Chronic diastolic (congestive) heart failure; W19.XXXA Unspecified fall, initial encounter; Y92.002 Bathroom of unspecified non-institutional (private) residence as the place of occurrence of the external cause; E86.0 Dehydration; I11.0 Hypertensive heart disease with heart failure; Z95.0 Presence of cardiac pacemaker; R29.6 Repeated falls; I95.1 Orthostatic hypotension; I49.9 Cardiac arrhythmia, unspecified; R74.8 Abnormal levels of other serum enzymes; T50.995A Adverse effect of other drugs, medicaments and biological substances, initial encounter; E86.1 Hypovolemia
CPT/HCPCS: 36415; 70450; 71045; 76700; 80053; 81003; 82248; 82607; 83880; 84443; 84484; 85025; 86803; 87340; 87517; 93005; 93306; 96360; 99285; J7030